=== PATIENT | male | born 1980 | race African-American/Black ===

== ENCOUNTER 2019-03-26 09:24 | Emergency (ER) | payer MEDICAID ==
[~2019-03-26] VITALS: Ht 180.3 cm; Wt 136.0 kg
[2019-03-26 11:58] VITALS: BP 136/86
== END 2019-03-26 11:58 | disposition home or self-care (01) ==
LOC: EMS 09:24
DX: R06.02 Shortness of breath (principal)

== ENCOUNTER 2025-01-14 20:21 | Emergency (ER) | payer MEDICAID ==
[~2025-01-14] VITALS: Ht 180.3 cm; Wt 143.2 kg
[2025-01-14 20:55] VITALS: TEMP 98.1
[2025-01-14 23:30] LABS: PLATELET COUNT (AUTO) 310 K/uL (150-450); RED BLOOD CELL COUNT(AUTO) 5.27 MIL/uL (4.50-5.90); RED CELL DISTRIBUTION WIDTH 14.3 % (11.5-14.5); WHITE BLOOD COUNT (AUTO) 5.9 K/uL (4.5-11.0)
[2025-01-14 23:39] LABS: CALCIUM, TOTAL 9.2 mg/dL (8.8-10.5); CREATININE 1.43 mg/dL (0.60-1.30); GLOMERULAR FILTR. RATE CALC > 60 mL/min (>60); GLUCOSE,RANDOM 105 mg/dL (70-110); SODIUM SERUM 143 mmol/L (136-145); UREA NITROGEN, BLOOD 15 mg/dL (7-18)
[2025-01-14 23:48] LABS: TROPONIN I-HIGH SENSITIVITY 42 ng/L (<76)
[2025-01-15] MEDS ORDERED: FURO-152 PO (01:17)
[2025-01-15] MEDS ORDERED: TRAM50TA5 PO (01:18)
[2025-01-15 01:25] VITALS: BP 133/77; PULSE 99; RESP 18; O2SAT 96
== END 2025-01-15 01:32 | disposition home or self-care (01) ==
LOC: EMS 20:21
DX: R60.9 Edema, unspecified (principal); M54.89 Other dorsalgia; G89.29 Other chronic pain; Z98.890 Other specified postprocedural states
CPT/HCPCS: 71045; 72100; 80048; 83880; 84484; 85025; 93005; 99285; 36415-L1; 36415-TC